=== PATIENT | female | born 2005 | race Two or more races ===

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

== ENCOUNTER 2023-11-06 13:46 | Emergency (ER) | payer SELFPAY ==
[~2023-11-06] VITALS: Ht 162.6 cm; Wt 50.0 kg
[2023-11-06] MEDS: SODIUM CHLORIDE 0.9% 1,000 ML IVB ONE (14:23)
[2023-11-06 14:50] LABS: Basophils # (auto) 0 10 ^3/uL (0-0.2); Basophils % (auto) 0.4 % (0.0-2.0); Eosinophils # (auto) 0.1 10 ^3/uL (0-0.8); Eosinophils % (auto) 1.4 % (0.0-7.0); Hematocrit 39.9 % (36.0-46.0); Hemoglobin 13.3 g/dL (12.2-16.2); Lymphocytes # (auto) 1.3 10 ^3/uL (0.4-5.4); Lymphocytes % (auto) 18.2 % (10.0-50.0); Mean Corpuscular Hemoglobin 31.4 pg (28.0-32.0); Mean Corpuscular Hgb Conc. 33.4 g/dL (32.0-36.0); Mean Corpuscular Volume 94.1 fL (80.0-100.0); Monocytes # (auto) 0.5 10 ^3/uL (0-1.3); Neutrophils # (auto) 5.3 10 ^3/uL (1.6-8.6); Nucleated Red Blood Cells % 0.1 %; Red Blood Cells 4.24 10^6/uL (4.0-5.20); White Blood Cell 7.3 10^3/uL (4.4-10.8)
[2023-11-06 15:05] LABS: Chloride 110 mmol/L (98-107); Potassium 3.5 mmol/L (3.5-5.1); Sodium 140 mmol/L (136-145)
[2023-11-06 15:06] LABS: Anion Gap 7 (5-15); Calcium 8.8 mg/dL (8.7-10.4); Carbon Dioxide 23 mmol/L (20-30)
[2023-11-06 15:11] LABS: BUN/Creatinine Ratio 13.8 (10.0-20.0); Blood Urea Nitrogen 8 mg/dL (9-23); Glucose 83 mg/dL (74-106)
[2023-11-06 15:53] VITALS: BP 120/74; PULSE 80; RESP 18; TEMP 98.3; O2SAT 99
== END 2023-11-06 15:55 | disposition home or self-care (01) ==
LOC: EDBD 13:46 → ER 13:48
DX: N94.6 Dysmenorrhea, unspecified (principal); R10.2 Pelvic and perineal pain; R55 Syncope and collapse
CPT/HCPCS: 36415; 80048; 84702; 85025; 96360; 99283; J7030